=== PATIENT | female | born 1995 ===

== ENCOUNTER 2023-09-21 17:45 | Inpatient (IN) | payer BC ==
[2023-09-21] VITALS (9 sets, daily range): BP systolic 143–150; BP diastolic 77–85; PULSE 102–104; O2SAT 97–100
[~2023-09-21] VITALS: Ht 154.9 cm; Wt 106.5 kg
[2023-09-21] MEDS ORDERED: NS 1,000 ML IV ONE ×2 (18:45→21:15)
[2023-09-21 18:54] LABS: BASO # 0.1 K/mm3 (0.0-0.2); BASO % 0.6 % (0.0-2.0); EOS # 0.1 K/mm3 (0.0-0.7); EOS % 1.8 % (0.0-4.0); GRAN # 5.8 K/mm3 (1.4-6.5); GRAN % 72.2 % (42.2-75.2); HEMATOCRIT 40.9 % (37.0-47.0); HEMOGLOBIN 12.6 g/dl (12.5-16.0); LYMPH # 1.5 K/mm3 (1.2-3.4); LYMPH % 18.6 % (20.0-51.0); MEAN CELL VOLUME 72 fl (80.0-100.0); MEAN CORPUSCULAR HEMOGLOBIN 22 pg (27-31); MEAN CORPUSCULAR HGB CONC 31 g/dl (33.0-37.0); MEAN PLATELET VOLUME 11.2 fl (7.4-10.4); MONO # 0.5 K/mm3 (0.1-0.6); MONO % 6.4 % (1.7-9.3); PLATELET COUNT 302 K/mm3 (130-400); REDCELL DISTRIBUTION WIDTH-CV 16.1 % (11.5-14.5)
[2023-09-21 19:03] LABS: COLLECTION METHOD CLEAN CATCH
[2023-09-21 19:12] LABS: URINE APPEARANCE CLEAR (CLEAR/HAZY); URINE BLOOD NEGATIVE (NEGATIVE); URINE COLOR YELLOW (YELLOW); URINE GLUCOSE 3+ (NEGATIVE); URINE KETONE 4+ (NEGATIVE); URINE NITRATE NEGATIVE (NEGATIVE); URINE PROTEIN(semi-quant) TRACE (NEGATIVE); URINE UROBILINOGEN 0.2 E.U/dL (0.2-1.0)
[2023-09-21] MEDS ORDERED: Ondansetron 4 MG/2 ML VIAL IV ONE (19:15)
[2023-09-21 19:19] LABS: TRICYCLIC ANTIDEPRESS URINE NEGATIVE (NEGATIVE)
[2023-09-21 19:24] LABS: ACETONE,SERUM SMALL
[2023-09-21 19:29] LABS: ALANINE AMINOTRANSFERASE 33 U/L (0-55); ALKALINE PHOSPHATASE 99 U/L (40-150); ANION GAP 17 mmol/L (7-16); AST,SGOT 22 U/L (5-34); BILIRUBIN,TOTAL 0.8 mg/dL (0.2-1.2); BLOOD UREA NITROGEN 10 mg/dL (7-19); CALCIUM 9.5 mg/dL (8.4-10.2); CHLORIDE 100 mEq/L (98-107); CREATININE, serum 1.24 mg/dL (0.57-1.11); LIPASE 40 U/L (8-78); POTASSIUM 4.4 mEq/L (3.5-4.5); SODIUM 130 mEq/L (136-145); TOTAL PROTEIN 8.3 g/dl (6.2-8.1)
[2023-09-21 19:30] LABS: GLUCOSE 511 mg/dL (70-99)
[2023-09-21] MEDS ORDERED: Insulin Human Regular/NS 100 ML IV ONE (19:45)
[2023-09-21] MEDS ORDERED: Ondansetron 4 MG/2 ML VIAL IV PRN (22:00)
[2023-09-21] MEDS ORDERED: Acetaminophen 500 MG TAB PO PRN (22:00)
[2023-09-21] MEDS ORDERED: D5W 1,000 ML IV SCH (22:00)
[2023-09-21] MEDS ORDERED: Insulin Human Regular/NS 100 ML IV SCH (22:00)
[2023-09-21] MEDS ORDERED: NS 1,000 ML IV SCH (22:00)
[2023-09-21] MEDS ORDERED: Potassium Bicarbonate/Citrate 20 MEQ Effervescent TAB PO ONE (22:15)
[2023-09-21] MEDS ORDERED: Potassium Bicarbonate/Citrate 20 MEQ Effervescent TAB PO SCH ×5 (22:15)
[2023-09-21] MEDS ORDERED: *Potassium Replacement Protocol MC SCH (22:15)
[2023-09-21 22:42] LABS: CALCIUM 8.4 mg/dL (8.4-10.2); CREATININE, serum 0.83 mg/dL (0.57-1.11); POTASSIUM 3.8 mEq/L (3.5-4.5)
--- NOTE | 2023-09-21 23:41 | NUR ---
2134: PT ADMITTED TO [facility], 28 YR OLD, FEMALE PT OF DR PEACOCK. NO SIGNIFICANT HX. X3. VSS, IV SITE RT AC WITH NS @ 250 AND INSULIN GTT AT 3CC/HR. A/O X4, PT TAKES NO MEDS THIS IS NEW ONSET DM. AFEBRILE, NO NAUSEA, PT STATES SHE IS "HUNGRY" . WILL CHECK DIET ORDERS. RESPIRATIONS EVEN AND UNLABORED. PT ON RM AIR WITH SATS AT 99%. = BOWEL SOUNDS, LAST BM WAS EARLIER TODAY. + PP's. EXPLAINED TO PT MONITORING I&O, FINGERSTICKS Q1HR, AND LABS Q2HR.
[2023-09-22] VITALS (47 sets, daily range): BP systolic 104–119; BP diastolic 58–82; PULSE 88–105; TEMP 98.1–986; O2SAT 94–99
[2023-09-22 06:52] LABS: BASO % 0.5 % (0.0-2.0); EOS # 0.2 K/mm3 (0.0-0.7); EOS % 3.6 % (0.0-4.0); GRAN # 3.6 K/mm3 (1.4-6.5); GRAN % 65.3 % (42.2-75.2); LYMPH # 1.3 K/mm3 (1.2-3.4); LYMPH % 23.9 % (20.0-51.0); MEAN CELL VOLUME 72 fl (80.0-100.0); MEAN CORPUSCULAR HGB CONC 30 g/dl (33.0-37.0); MEAN PLATELET VOLUME 11.4 fl (7.4-10.4); MONO # 0.4 K/mm3 (0.1-0.6); MONO % 6.5 % (1.7-9.3); PLATELET COUNT 240 K/mm3 (130-400); RED BLOOD COUNT 4.31 M/mm3 (4.10-5.30); REDCELL DISTRIBUTION WIDTH-CV 15.8 % (11.5-14.5)
[2023-09-22 06:56] LABS: HEMOGLOBIN 9.4 g/dl (12.5-16.0); MEAN CORPUSCULAR HEMOGLOBIN 22 pg (27-31)
--- NOTE | 2023-09-22 07:00 | NUR ---
REPORT RECEIVED FROM [facility]. PT RESTING IN BED, VSS. INSULIN AND FLUIDS INFUSING ORDERED TO PERIPHERAL IV IN RAC. PT DENIES PAIN OR N/V. PT IS ALERT AND ORIENTED, USES CALL LIGHT FOR NEEDS.
[2023-09-22 07:45] LABS: CREATININE, serum 0.77 mg/dL (0.57-1.11); POTASSIUM 3.5 mEq/L (3.5-4.5)
[2023-09-22] MEDS ORDERED: Dextrose 50% Water 25 GM/50 ML SYRINGE IV PRN (07:45)
[2023-09-22] MEDS ORDERED: Glucagon 1 MG VIAL IM PRN (07:45)
[2023-09-22] MEDS ORDERED: Dextrose (Glucose) 15 GM (4 x 3.75 GM) Chewable TABLET PACK PO PRN (07:45)
[2023-09-22] MEDS ORDERED: NS 1,000 ML IV SCH (09:30)
[2023-09-22 09:39] LABS: CALCIUM 8.2 mg/dL (8.4-10.2); CREATININE, serum 0.78 mg/dL (0.57-1.11); POTASSIUM 3.6 mEq/L (3.5-4.5)
[2023-09-22] MEDS ORDERED: Magnesium Sulfate 2 GM/50 ML IV SOLN IV SCH (10:00)
[2023-09-22] MEDS ORDERED: Potassium Bicarbonate/Citrate 20 MEQ Effervescent TAB PO SCH (10:45)
[2023-09-22] MEDS ORDERED: Insulin Glargine-ygfn (Lantus) SQ ONE (10:45)
[2023-09-22] MEDS ORDERED: *Potassium Replacement Protocol MC SCH (10:45)
[2023-09-22] MEDS ORDERED: Insulin Lispro (HumaLOG) SQ SCH (12:00)
--- NOTE | 2023-09-22 13:22 | NUR ---
powder worker met with patient to discuss discharge planning. Patient lives in [place] with her , Justin, P# [phone]. No PCP, SW provided the list of options along with [facility] Resource Guide and mental health resources. SW also provided [facility] information. [facility]acy is [facility] on [address], Patient reports to not have issues affording medications. Insurance is [employer]. No DPOA-HC and not interested in completing one. No DME and reports to be independent with ADLS. Patient is able to transport herself to and from appointments. Patient would like to return home at time of discharge. Discharge plan: Home
--- NOTE | 2023-09-22 21:30 | NUR ---
Patient resting in bed. States she has a headache rating the pain at 7/10, prn tylenol given. Needs met. Assessment complete. Walked patient through giving herself the insulin injections SQ. Was able to give herself the shot with no complications. Call light and personal items in reach. Bed in low position.
[2023-09-23 03:26] VITALS: BP 102/66; PULSE 74; TEMP 98.1
--- NOTE | 2023-09-23 05:50 | NUR ---
Patient resting in bed with eyes closed. Respirations even and unlaborded. No signs of pain or needs at this time. No changes over night. Call light and personal items in reach. Bed in low position.
--- NOTE | 2023-09-23 06:10 | NUR ---
Patient resting in bed. Denies any pain or needs this morning. Took patient off Cpap and put 2L NC back on. Patient had a medium to large liquid bowel movement last night. No other changes over night. Call light and personal items in reach. Bed in low position and bed alarm on.
[2023-09-23 07:14] VITALS: BP 97/60; PULSE 87; TEMP 98.2
--- NOTE | 2023-09-23 08:42 | NUR ---
Pt laying in bed. A&Ox4. VSS. S1S2. Clear lungs on RA. ABD is rounded, soft, non-tender with audible bowel sounds. Palpable pulses in all extremities with normal strength. IV in R AC is patent. Pt denies pain, dizziness, n/v. Pt reports achy headache /. Pt declined pain meds, willing to try ice pack. Pt educated on insulin administration. Pt administered AM insulin into ABD with guiding from nursing on steps. No further needs at this time. Call light in reach.
[2023-09-23] MEDS ORDERED: Insulin Glargine-ygfn (Lantus) SQ SCH (09:00)
[2023-09-23] MEDS ORDERED: Insulin Glargine-ygfn (Lantus) SQ ONE (10:45)
--- NOTE | 2023-09-23 11:02 | NUR ---
Attempted to call [employer]. Left Message on Machine for educator to call back.
[2023-09-23 11:56] VITALS: BP 113/74; PULSE 97; TEMP 98.6
--- NOTE | 2023-09-23 12:01 | NUR ---
09/23/23: [id number] EDUCATION CONSULT. 28 YO FEMALE, NEWLY DIAGNOSED WITH DIABETES, LIKELY T2DM PER NORMAL C-PEPTIDE. WOULD RECOMMEND ANTIBODY TESTING OUTPATIENT WITH ENDOCRINOLOGY TO CONFIRM. BLOOD GLUCOSE AT ADMIT 449MG/DL, A1C 9.2%. PATIENT REPORTS NO FAMILY HISTORY OF DIABETES TO HER KNOWLEDGE. PATIENT VERBALIZES UNDERSTANDING HOW TO CHECK HER BLOOD SUGAR VIA FINGERSTICK WELL ADMINISTER INSULIN INJECTIONS. 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 EDUCATION PROVIDED ON: BLOOD GLUCOSE MONITORING GOALS, SIGNS AND SYMPTOMS OF HYPOGLYCEMIA AND TREATMENT, INSULIN ADMINISTRATION TIPS AND GUIDELINES, AND IMPORTANCE OF ESTABLISHING WITH A PCP FOR ASSISTANCE WITH DM MEDICATION MANAGEMENT. DIET EDUCATION PROVIDED WELL. THIS PATIENT DOES NOT CURRENTLY EAT BREAKFAST ASIDE FROM DRINKING ORANGE JUICE. RECOMMENDED SHE TRIAL SWITCHING TO A HIGH PROTEIN BREAKFAST SUCH A PREMIER PROTEIN SHAKE WITH 1 PC. OF PB TOAST OR AN APPLE, OR 2 EGGS WITH WHEAT TOAST OR BAHAMIAN MUFFIN. PATIENT STOPPED DRINKING REGULAR SODA 2 MONTHS AGO, BUT DOES LIKE TO DRINK SWEET TEA. RECOMMENDED SHE SWITCH TO UNSWEETENED TEA AND FOCUS ON DRINKING WATER MORE THAN SWEETENED DRINKS. SHOWED THIS PATIENT THE ADA 'HEALTHY PLATE' GRAPHIC AND RECOMMENDED ADDING MORE NON-STARCHY VEGETABLES TO HER MEALS. THIS PATIENT WOULD BE A GOOD CANDIDATE FOR A CONTINUOUS GLUCOSE MONITOR (CGM) WITH HER AGE AND BUSY LIFESTYLE A WORKING MOM OF 3. RECOMMENDED THIS PATIENT REQUEST THIS FROM PCP ONCE ESTABLISHED. WILL SEND A REFERRAL REQUEST TO PCP ONCE I KNOW WHO SHE WILL BE GOING TO. THIS PATIENT SHOWED INTEREST IN SEEING ME FOR OUTPATIENT DIABETES EDUCATION. KML,MS,RD,CSSD,LD.
--- NOTE | 2023-09-23 12:30 | NUR ---
outreach educator was in talking with Pt regarding meal and checking BG/insulin. Pt correctly administered insulin for this RN with minimal assistance/guidence. No further needs at this time. Call light in reach.
[2023-09-23 13:02] LABS: ANION GAP 7 mmol/L (7-16); CALCIUM 8.4 mg/dL (8.4-10.2); CHLORIDE 104 mEq/L (98-107); CREATININE, serum 0.83 mg/dL (0.57-1.11); GLUCOSE 376 mg/dL (70-99); SODIUM 133 mEq/L (136-145)
[2023-09-23 13:04] LABS: BLOOD UREA NITROGEN < 5 mg/dL (7-19)
[2023-09-23 15:06] VITALS: BP 117/71; PULSE 92; TEMP 99.5
[2023-09-23] MEDS ORDERED: GLUCOPHAGE500 MG/TAB PO (15:11)
[2023-09-23] MEDS ORDERED: LANTUS SOLOS100 U/ML SQ (15:14)
[2023-09-23] MEDS ORDERED: HUMALOG PEN100 U/ML SQ (15:14)
[2023-09-23] MEDS ORDERED: LANCETS MC (15:16)
[2023-09-23] MEDS ORDERED: GLUTOSE 1515 GM PO (15:16)
[2023-09-23] MEDS ORDERED: GLUCOSE TEST ST1 DEV MC (15:16)
[2023-09-23] MEDS ORDERED: GLUCAGON EMERGEN1 M1 SQ (15:16)
[2023-09-23] MEDS ORDERED: BD ALCOHOL1 SWA MC (15:16)
[2023-09-23] MEDS ORDERED: FREESTYLE PREC1 EAC5 MC (15:16)
[2023-09-23] MEDS ORDERED: B-D SAFETY GLID1 DE1 SQ (15:16)
[2023-09-23] MEDS ORDERED: CONTROL SOLUTI1 EAC1 MC (15:16)
--- NOTE | 2023-09-23 15:34 | NUR ---
Pt sitting on bed. Discontinued Pt's IV from R AC. Tip intact. Pressure banddage applied.
--- NOTE | 2023-09-23 16:32 | NUR ---
Pt educated on discharge instructions and information. Answered Pt questions. No further needs at this time. Walked Pt out to vehicle. Family driving her home.
[2023-09-24] MEDS ORDERED: Insulin Glargine-ygfn (Lantus) SQ SCH (09:00)
--- NOTE | 2023-09-24 10:01 | NUR ---
09/24/[id number] DIABETES EDUCATION REFERRAL REQUEST FAXED TO [facility] MD/STORMY AKHTAR APRN. KML,MS,RD,CSSD,LD
== END 2023-09-23 16:33 | disposition home or self-care (01) | DRG 638 ==
LOC: COL.ER 17:45 → ICU 20:17 → EU 09-22 16:15 → ICU 09-22 16:15 → MEDICAL 09-22 16:23
PROVIDERS: Internal Medicine; Physician Assistant; ADMIT Internal Medicine
DX: E11.10 Type 2 diabetes mellitus with ketoacidosis without coma (principal); N17.9 Acute kidney failure, unspecified; Z68.41 Body mass index [BMI] 40.0-44.9, adult; R63.4 Abnormal weight loss; E86.0 Dehydration
CPT/HCPCS: J1650; J1815; J2405; J3475; J7030; J7070